=== PATIENT | male | born 1970 | race Caucasian/White ===

== ENCOUNTER 2017-08-19 18:50 | Emergency (ER) | payer OTHER ==
[~2017-08-19] VITALS: Ht 188 cm; Wt 189.6 kg
[2017-08-19] MEDS ORDERED: KETOROLAC 30 MG/1 ML ONE (20:59)
[2017-08-19] MEDS ORDERED: KETOROLAC 30 MG/1 ML IM ONE (21:00)
[2017-08-19 21:31] VITALS: BP 186/92
== END 2017-08-19 21:33 | disposition home or self-care (01) ==
LOC: ED 21:12
DX: S23.29XA Dislocation of other parts of thorax, initial encounter (principal); M94.0 Chondrocostal junction syndrome [Tietze]; I10 Essential (primary) hypertension; R10.9 Unspecified abdominal pain; E66.01 Morbid (severe) obesity due to excess calories; Z68.43 Body mass index [BMI] 50.0-59.9, adult; X58.XXXA Exposure to other specified factors, initial encounter; Y93.89 Activity, other specified; Y92.89 Other specified places as the place of occurrence of the external cause; Y99.8 Other external cause status
CPT/HCPCS: 71046; 93005; 96372; 99284; J1885

== ENCOUNTER → 2017-08-29 | Outpatient (CLI) | payer OTHER | END | disposition home or self-care (01) | LOC: WOUND 09:03 | PROVIDERS: ATTEND Internal Medicine | DX: S61.001A Unspecified open wound of right thumb without damage to nail, initial encounter (principal); I10 Essential (primary) hypertension; E66.01 Morbid (severe) obesity due to excess calories; Z68.43 Body mass index [BMI] 50.0-59.9, adult; X08.8XXA Exposure to other specified smoke, fire and flames, initial encounter; Y93.89 Activity, other specified; Y92.89 Other specified places as the place of occurrence of the external cause; Y99.8 Other external cause status | CPT/HCPCS: 97597; 99215 ==

== ENCOUNTER → 2017-09-03 | Outpatient (CLI) | payer OTHER | END | disposition home or self-care (01) | LOC: WOUND 08:00 | PROVIDERS: ATTEND Internal Medicine | DX: S61.001D Unspecified open wound of right thumb without damage to nail, subsequent encounter (principal); I10 Essential (primary) hypertension; F32.9 Major depressive disorder, single episode, unspecified; E66.01 Morbid (severe) obesity due to excess calories; Z68.43 Body mass index [BMI] 50.0-59.9, adult; W24.0XXD Contact with lifting devices, not elsewhere classified, subsequent encounter | CPT/HCPCS: 97597 ==

== ENCOUNTER → 2017-09-12 | Outpatient (CLI) | payer OTHER | END | disposition home or self-care (01) | LOC: WOUND 07:45 | PROVIDERS: ATTEND Internal Medicine | DX: S61.412D Laceration without foreign body of left hand, subsequent encounter (principal); I10 Essential (primary) hypertension; F32.9 Major depressive disorder, single episode, unspecified; E66.01 Morbid (severe) obesity due to excess calories; Z68.43 Body mass index [BMI] 50.0-59.9, adult; X58.XXXD Exposure to other specified factors, subsequent encounter | CPT/HCPCS: 99214 ==

== ENCOUNTER 2018-03-20 06:05 | Day surgery (SDC) | payer OTHER ==
[2018-03-15 14:20] VITALS: BP 155/96
[~2018-03-20] VITALS: Ht 185.4 cm; Wt 173.0 kg
[~2018-03-20 06:05] MED LIST: ALLO300T PO; AMLO10TA6 PO; ESCI10TA PO; FINA5TAB4 PO; LOSA1TAB22 PO; PROP40TA PO
[2018-03-20] MEDS ORDERED: LACTATED RINGERS 1,000 ML IV SCH (07:01)
[2018-03-20 07:04] VITALS: BP 155/96
[2018-03-20] MEDS ORDERED: LIDOCAINE/PF 1%, 30ML ONE (07:08)
[2018-03-20] MEDS ORDERED: BUPIVACAINE/PF-EPI 0.5% 1:200K ONE (07:08)
[2018-03-20] MEDS ORDERED: LIDOCAINE-MPF 1%, 2ML INFIL ONE (07:30)
[2018-03-20] MEDS ORDERED: FENTANYL PF 250 MCG/5ML ONE (07:31)
[2018-03-20] MEDS ORDERED: MIDAZOLAM 1 MG/ML, 2ML ONE (07:31)
[2018-03-20] MEDS ORDERED: WATER-INJECTION,STERILE 10 ML IV ONE (07:32)
[2018-03-20] MEDS ORDERED: CEFAZOLIN 1,000 MG ONE ×4 (07:32→08:07)
[2018-03-20] MEDS ORDERED: PROPOFOL 10 MG/ML, 20ML ONE (07:32)
[2018-03-20] MEDS ORDERED: HYDROmorphone 1 MG/ML, 1ML IV PRN (08:00)
[2018-03-20] MEDS ORDERED: hydrALAzine 20 MG/ML, 1ML IV PRN (08:00)
[2018-03-20] MEDS ORDERED: PROMETHAZINE 25 MG/ML, 1ML IV PRN (08:00)
[2018-03-20] MEDS ORDERED: MEPERIDINE/PF 25MG/0.5ML IVPush PRN (08:00)
[2018-03-20] MEDS ORDERED: ONDANSETRON 2MG/ML, 2ML IV PRN (08:00)
[2018-03-20] MEDS ORDERED: PROMETHAZINE 25 MG SUPP PR PRN (08:00)
[2018-03-20] MEDS ORDERED: ACETAMINOPHEN 325 MG TABLET PO PRN (08:00)
[2018-03-20] MEDS ORDERED: FENTANYL PF 100 MCG/2ML IV PRN (08:00)
[2018-03-20] MEDS ORDERED: ONDANSETRON ODT 8 MG PO PRN (08:00)
[2018-03-20] MEDS ORDERED: LABETALOL 5MG/ML, 20ML IV PRN (08:00)
[2018-03-20] MEDS ORDERED: PROMETHAZINE 12.5 MG SUPP PR PRN (08:00)
[2018-03-20] MEDS ORDERED: PROMETHAZINE 25 MG/ML, 1ML IM PRN ×2 (08:00)
[2018-03-20] MEDS ORDERED: MORPHINE SULFATE 4 MG/ML, 1ML IVPush PRN (08:00)
[2018-03-20] MEDS ORDERED: MEPERIDINE/PF 50 MG/ML ONE (11:58)
[2018-03-20] MEDS ORDERED: ACETAMINOPHEN 650 MG/20.3 ML UDC ONE (11:58)
[2018-03-20] MEDS ORDERED: ACETAMINOPHEN 325 MG TABLET ONE (11:58)
[2018-03-20] MEDS ORDERED: OXYcodone 5 MG/5 ML ORAL.SOL UDC ONE (11:59)
[2018-03-20] MEDS: OXYcodone 5 MG/5 ML ORAL.SOL UDC PO PRN ×2 (12:01→14:20)
[2018-03-20] MEDS ORDERED: OXYcodone IR 5MG TABLET ONE (14:23)
== END 2018-03-20 15:50 | disposition home or self-care (01) ==
LOC: OUT 06:05
PROVIDERS: ATTEND Podiatrist Foot & Ankle Surgery
DX: M72.2 Plantar fascial fibromatosis (principal); M20.21 Hallux rigidus, right foot; M20.22 Hallux rigidus, left foot; M25.572 Pain in left ankle and joints of left foot; M25.571 Pain in right ankle and joints of right foot; M10.9 Gout, unspecified; I10 Essential (primary) hypertension
CPT/HCPCS: 28008; 28291; C1776; J0690; J2175; J2250; J2405; J2704; J3010; J3490; J7120